=== PATIENT | male | born 1955 | race Caucasian/White ===

== ENCOUNTER 2020-10-30 22:40 | Emergency (ER) | payer OTHER ==
[~2020-10-30] VITALS: Ht 185.4 cm; Wt 76.2 kg
--- NOTE | 2020-10-30 22:48 | NUR ---
DR. GOLDSTEIN TO [facility] TO ASSESS.
--- NOTE | 2020-10-30 22:50 | NUR ---
PT TO BED 1 FOR EVALUATION, GOWNED, AND ATTACHED TO MONITOR.
[2020-10-30 22:55] VITALS: BP_SYST 127
[2020-10-30] MEDS ORDERED: NACL 0.9% 1,000 ML IV ONE (23:45)
[2020-10-30] MEDS ORDERED: MORPHINE 2 MG/ML INJ. SYRINGE IVP ONE (23:45)
--- NOTE | 2020-10-31 00:10 | NUR ---
# 20 gauge angiocath placed to left forearm. Use of asceptic technique. Opsite placed over site. Blood return noted. Flushed with 10 cc of normal saline. No evidence of infiltration noted. Patient tolerated well. Medicated per MD orders. IVF infusing with no s/s of infiltration at this time. Will cont to monitor and observe for any adverse reaction. bed to low position sr up, continue to monitor.
[2020-10-31 00:14] LABS: BASOPHILS % (AUTO) 0.3 % (0.0-2.0); EOSINOPHILS # (AUTO) 0.1 K/uL (0.0-0.4); HEMATOCRIT 29.3 % (36-54); HEMOGLOBIN 9.8 g/dL (14.0-18.0); LYMPHOCYTES # (AUTO) 0.9 K/uL (1.0-5.5); LYMPHOCYTES % (AUTO) 10.8 % (20.5-51.5); MEAN CORPUSCULAR HEMOGLOBIN 30 pg (27-31); MEAN CORPUSCULAR HGB CONC 33 % (32-36); MEAN CORPUSCULAR VOLUME 91 fL (79.0-98.0); MONOCYTES # (AUTO) 0.5 K/uL (0.0-1.0); MONOCYTES % (AUTO) 6.7 % (1.7-9.3); NEUTROPHILS # (AUTO) 6.4 K/uL (1.8-7.7); NEUTROPHILS % (AUTO) 81.2 % (40.0-70.0); PLATELET COUNT (AUTO) 523 K/uL (130-430); RED BLOOD CELL COUNT(AUTO) 3.23 MIL/uL (4.2-6.2); RED CELL DISTRIBUTION WIDTH 15.5 % (9.0-15.0); WHITE BLOOD COUNT (AUTO) 7.9 K/uL (4.8-10.8)
--- NOTE | 2020-10-31 00:36 | NUR ---
Patient transported to radiology via wheelchair, accompanied by erecting crane operator.
--- NOTE | 2020-10-31 00:46 | NUR ---
Pt back from radiology and re-attached to monitor.
--- NOTE | 2020-10-31 00:48 | NUR ---
Returned from radiology, back to [facility].
--- NOTE | 2020-10-31 00:48 | NUR ---
Marcelo collins in [facility] - 10/31/20 at 0048 by [email or web address] Returned from radiology, back to [facility].
--- NOTE | 2020-10-31 01:29 | NUR ---
Patient resting quietly. No acute distress noted. Vital signs within normal range.
[2020-10-31 01:32] LABS: POTASSIUM 5.2 mmol/L (3.5-5.1)
[2020-10-31 01:33] LABS: CALCIUM 9.7 mg/dL (8.4-11.0); CREATININE 1.51 mg/dL (0.55-1.30); TOTAL BILIRUBIN 1.3 mg/dL (0.0-1.0)
[2020-10-31 01:34] LABS: ALBUMIN 3.6 g/dL (3.4-4.8)
--- NOTE | 2020-10-31 02:36 | NUR ---
Patient transported to radiology via wheelchair, accompanied by [employer] tech.
--- NOTE | 2020-10-31 02:50 | NUR ---
Returned from radiology, back to [facility].
--- NOTE | 2020-10-31 03:05 | NUR ---
Patient resting quietly. No acute distress noted. Vital signs within normal range.
[2020-10-31 03:39] LABS: PROTHROMBIN TIME 10.5 SECS (9.5-12.5)
--- NOTE | 2020-10-31 04:40 | NUR ---
Patient given written and verbal discharge instructions and verbalizes understanding. ER MD discussed with patient the results and treatment provided. Patient in stable condition. ID arm band removed. IV catheter removed intact and dressing applied, no active bleeding. given. Patient educated on pain management and to follow up with PMD. Pain Scale . Opportunity for questions provided and answered. Medication side effect fact sheet provided.
[2020-10-31 04:44] VITALS: BP_SYST 118
== END 2020-10-31 04:35 | disposition home or self-care (01) ==
LOC: SED 22:40
DX: S30.1XXA Contusion of abdominal wall, initial encounter (principal); I72.9 Aneurysm of unspecified site; Z88.6 Allergy status to analgesic agent; W01.0XXA Fall on same level from slipping, tripping and stumbling without subsequent striking against object, initial encounter; Y93.89 Activity, other specified; Y92.89 Other specified places as the place of occurrence of the external cause; Y99.8 Other external cause status
CPT/HCPCS: 36415; 74176; 80053; 85025; 85610; 93971; 96361; 96374; 99285; J2270; J7030; 76376